=== PATIENT | male | born 1995 | race Two or more races ===

== ENCOUNTER 2017-09-21 17:33 | Emergency (ER) | payer OTHER ==
[2017-09-21 17:39] VITALS: BP 125/70; PULSE 64; TEMP 98; BMI 28.5
--- NOTE | 2017-09-21 17:39 | PDOC ---
Rapid Medical Evaluation Chief Complaint: Injury Time Seen by Provider: 09/21/17 17:36 Medical Evaluation: 09/21/17 17:36 Pt. with R ankle/foot pain for a couple of weeks after playing basketball. Feels like he pulled something in the back of the ankle. Currently with swelling Exam: ambulatory, TTP with mild swelling to the medial malleolus Orders: x-ray Pt. will proceed to [facility] for further evaluation.
--- NOTE | 2017-09-21 18:44 | PDOC ---
History of Present Illness - General Chief Complaint: Injury Stated Complaint: FOOT INJURY Time Seen by Provider: 09/21/17 17:36 - History of Present Illness Initial Comments: 22-year-old male presents for evaluation of right ankle pain. He states he twisted his right ankle a week ago while playing basketball he points to the lateral aspect of the right ankle is area of his discomfort he describes his pain as achy exacerbated with motion weightbearing only with rest and free of radiation. No prior problems with the right ankle. 09/21/17 18:42 Past History - Past Medical History Allergies/Adverse Reactions: Allergies Allergy/AdvReac Type Severity Reaction Status Date / Time No Known Allergies Allergy Verified 09/21/17 17:39 Home Medications: Ambulatory Orders NK [No Known Home Medication] 09/21/17 COPD: No - Suicide/Smoking/Psychosocial Hx Smoking History: Never smoked Have you smoked in the past 12 months: No Information on smoking cessation initiated: No Hx Alcohol Use: No Drug/Substance Use Hx: No Substance Use Type: None Review of Systems - Review of Systems Musculoskeletal: Yes: Joint Pain All Other Systems: Reviewed and Negative *Physical Exam - Vital Signs Last Vital Signs Temp Pulse Resp BP Pulse Ox 98.0 F 64 18 125/70 99 09/21/17 17:37 09/21/17 17:37 09/21/17 17:37 09/21/17 17:37 09/21/17 17:37 - Physical Exam Comments: Right ankle skin color and temperature are normal there is mild swelling about the anterior lateral aspect of the right ankle full range of motion. No tenderness about the proximal fibula or along its distal course. There is no tenderness about the medial malleolus or deltoid ligament. No tenderness about the navicular or fifth metatarsal. No tenderness about the lateral malleolus. There is mild tenderness over the ATFL. No instability. No gross sensorimotor deficits. He is neurovascularly intact. 09/21/17 18:42 Moderate Sedation - Procedure Monitoring Vital Signs: Vital Signs Temp Pulse Resp BP Pulse Ox 98.0 F 64 18 125/70 99 09/21/17 17:37 09/21/17 17:37 09/21/17 17:37 09/21/17 17:37 09/21/17 17:37 Medical Decision Making - Medical Decision Making This is most likely a right lateral ankle sprain. X-rays are pending. 09/21/17 18:43 09/21/17 19:25 X-rays of the right foot and ankle are negative for fracture. His right lateral ankle sprain Aircast crutches weight-bear as tolerated follow-up with orthopedics. *DC/Admit/Observation/Transfer Diagnosis at time of Disposition: Ankle sprain - Discharge Dispostion Disposition: HOME Condition at time of disposition: Stable Decision to Admit order: No - Referrals Referrals: ON STAFF,NOT [Primary Care Provider] - Honorio Chow MD [Staff Physician] - - Patient Instructions Printed Discharge Instructions: Ankle Sprain, DI for Ankle Sprain Additional Instructions: Ice and elevate your ankle. Ice for 20 minutes at a time 3-5 times a day. Return to the emergency room if your symptoms worsen or go unresolved. It's important few to follow-up with orthopedic surgery for further evaluation and treatment options. He may take Tylenol and Motrin for the pain weight-bear as tolerated with the use of crutches and Aircast for now. - Post Discharge Activity
== END 2017-09-21 20:03 | disposition home or self-care (01) ==
LOC: JERFT 17:33
PROC: 2W3QX1Z Immobilization of Right Lower Leg using Splint (ICD-10-PCS; principal; 2017-09-21)
DX: S93.491A Sprain of other ligament of right ankle, initial encounter (principal); X50.9XXA Other and unspecified overexertion or strenuous movements or postures, initial encounter; Y93.67 Activity, basketball; Y92.310 Basketball court as the place of occurrence of the external cause; Y99.8 Other external cause status
CPT/HCPCS: 29515; 73610-TC-RT-FY; 73630-TC-RT-FY; 99281-25

== ENCOUNTER 2020-11-05 12:45 | Emergency (ER) | payer OTHER ==
[2020-11-05 12:50] VITALS: BP 120/76; PULSE 64; TEMP 97; BMI 27.8
== END 2020-11-05 14:09 | disposition home or self-care (01) ==
LOC: JERFT 12:45
DX: R59.0 Localized enlarged lymph nodes (principal)
CPT/HCPCS: 76536; 99283-25

== ENCOUNTER 2021-03-30 21:35 | Emergency (ER) | payer OTHER ==
[2021-03-30 21:40] VITALS: BP 122/78; PULSE 56; TEMP 97.7; BMI 27.8
== END 2021-03-30 22:18 | disposition home or self-care (01) ==
LOC: JERFT 21:35
PROC: 0H9FXZZ Drainage of Right Hand Skin, External Approach (ICD-10-PCS; principal; 2021-03-30)
DX: L03.011 Cellulitis of right finger (principal)
CPT/HCPCS: 99283-25